=== PATIENT | male | born 1970 | race African-American/Black ===

== ENCOUNTER 2016-09-28 14:54 | Emergency (ER) | payer MEDICAID ==
[~2016-09-28] VITALS: Ht 182.9 cm; Wt 75.0 kg
[2016-09-28 15:08] VITALS: BP 146/84
[2016-09-28] MEDS ORDERED: KETOROLAC 30 MG/1 ML IM ONE (15:30)
[2016-09-28] MEDS ORDERED: HYDROcodone/APAP 5/325 TABLET PO PRN (15:30)
[2016-09-28] MEDS ORDERED: KETOROLAC 30 MG/1 ML ONE (15:33)
[2016-09-28] MEDS ORDERED: HYDROcodone/APAP 5/325 TABLET ONE (15:33)
== END 2016-09-28 16:32 | disposition home or self-care (01) ==
LOC: ED 16:20
DX: S86.911A Strain of unspecified muscle(s) and tendon(s) at lower leg level, right leg, initial encounter (principal); W10.9XXA Fall (on) (from) unspecified stairs and steps, initial encounter; Y93.89 Activity, other specified; Y92.89 Other specified places as the place of occurrence of the external cause; Y99.8 Other external cause status
CPT/HCPCS: 73590; 96372; 99284; J1885

== ENCOUNTER 2017-09-08 16:45 | Emergency (ER) | payer MEDICAID ==
[~2017-09-08] VITALS: Ht 182.9 cm; Wt 73.4 kg
[2017-09-08 16:48] VITALS: BP 144/92
[2017-09-08 17:38] LABS: BASOPHILS # (AUTO) 0.03 x10^3/uL (0-0.1); BASOPHILS % (AUTO) 1 % (0-1); EOSINOPHILS # (AUTO) 0.14 x10^3/uL (0-0.4); EOSINOPHILS % (AUTO) 3 % (1-7); LYMPHOCYTES # (AUTO) 1.84 x10^3/uL (1-3.4); LYMPHOCYTES % (AUTO) 41 % (22-44); MD NO; MEAN CORPUSCULAR HEMOGLOBIN 32.1 pg (27.5-34.5); MEAN CORPUSCULAR HGB CONC 33.3 g/dL (33.2-36.2); MEAN CORPUSCULAR VOLUME 96.3 fL (81-97); MEAN PLATELET VOLUME 8.4 fL (7.4-10.4); MONOCYTES # (AUTO) 0.32 x10^3/uL (0.2-0.8); MONOCYTES % (AUTO) 7 % (2-9); NEUTROPHILS # (AUTO) 2.17 x10^3/uL (1.8-6.8); NEUTROPHILS % (AUTO) 48 % (42-75); PLATELET COUNT 262 x10^3/uL (130-400); RED BLOOD COUNT 4.55 x10^6/uL (4.38-5.82); RED CELL DISTRIBUTION WIDTH 13.1 % (9.4-14.8)
[2017-09-08 17:47] LABS: ALANINE AMINOTRANSFERASE 71 U/L (12-78); ALBUMIN 3.5 g/dL (3.4-5.0); ANION GAP 10 mmol/L (5-15); CALCIUM 8.8 mg/dL (8.5-10.1); CHLORIDE 109 mmol/L (98-107); CREATININE 1.46 mg/dL (0.7-1.3)
[2017-09-08 17:49] LABS: ALKALINE PHOSPHATASE 102 U/L (45-117); TOTAL PROTEIN 6.5 g/dL (6.4-8.2)
[2017-09-08 18:04] LABS: MICROSCOPIC NOT IND
[2017-09-08 18:09] LABS: CULTURE INDICATED? NO
== END 2017-09-08 19:16 | disposition home or self-care (01) ==
LOC: ED 19:00
DX: R10.84 Generalized abdominal pain (principal); R11.0 Nausea; F17.200 Nicotine dependence, unspecified, uncomplicated; Z79.899 Other long term (current) drug therapy; Z90.89 Acquired absence of other organs
CPT/HCPCS: 36415; 80053; 80307; 81003; 83690; 85025; 99284

== ENCOUNTER 2017-09-23 22:53 | Emergency (ER) | payer MEDICAID ==
[~2017-09-23] VITALS: Ht 182.9 cm; Wt 77.5 kg
[2017-09-23 22:58] VITALS: BP 132/90
[2017-09-23 23:47] LABS: BASOPHILS # (AUTO) 0.01 x10^3/uL (0-0.1); BASOPHILS % (AUTO) 0 % (0-1); EOSINOPHILS % (AUTO) 4 % (1-7); LYMPHOCYTES % (AUTO) 45 % (22-44); MD NO; MEAN CORPUSCULAR HEMOGLOBIN 32.3 pg (27.5-34.5); MEAN CORPUSCULAR HGB CONC 33.8 g/dL (33.2-36.2); MEAN CORPUSCULAR VOLUME 95.4 fL (81-97); MEAN PLATELET VOLUME 8.6 fL (7.4-10.4); MONOCYTES # (AUTO) 0.43 x10^3/uL (0.2-0.8); MONOCYTES % (AUTO) 8 % (2-9); NEUTROPHILS # (AUTO) 2.48 x10^3/uL (1.8-6.8); NEUTROPHILS % (AUTO) 44 % (42-75); PLATELET COUNT 226 x10^3/uL (130-400); RED BLOOD COUNT 4.52 x10^6/uL (4.38-5.82); RED CELL DISTRIBUTION WIDTH 12.9 % (9.4-14.8)
[2017-09-23 23:58] LABS: ALBUMIN 3.3 g/dL (3.4-5.0); ANION GAP 9 mmol/L (5-15); CALCIUM 8.1 mg/dL (8.5-10.1); CHLORIDE 109 mmol/L (98-107); CREATININE 1.38 mg/dL (0.7-1.3)
== END 2017-09-24 01:33 | disposition home or self-care (01) ==
LOC: ED 23:10
DX: J20.9 Acute bronchitis, unspecified (principal); J45.909 Unspecified asthma, uncomplicated; F17.210 Nicotine dependence, cigarettes, uncomplicated
CPT/HCPCS: 36415; 71046; 80048; 82040; 85025; 99285; 99406

== ENCOUNTER 2017-12-29 23:00 | Emergency (ER) | payer MEDICAID ==
[~2017-12-29] VITALS: Ht 180.3 cm; Wt 77.6 kg
[2017-12-29] MEDS ORDERED: IBUPROFEN 800 MG TABLET PO STA (23:30)
[2017-12-29] MEDS ORDERED: ALBUTEROL/IPRATROPIUM 2.5MG/0.5MG, 3 ML NPPB ONE (23:30)
[2017-12-29] MEDS ORDERED: IBUPROFEN 200 MG TABLET ONE (23:34)
[2017-12-30 00:07] VITALS: BP 113/74
== END 2017-12-30 00:29 | disposition home or self-care (01) ==
LOC: ED 23:46
DX: J20.8 Acute bronchitis due to other specified organisms (principal); B97.89 Other viral agents as the cause of diseases classified elsewhere; F17.210 Nicotine dependence, cigarettes, uncomplicated; J45.909 Unspecified asthma, uncomplicated; Z90.89 Acquired absence of other organs
CPT/HCPCS: 71046; 94640; 99284; 99406; J7512; J7620

== ENCOUNTER 2018-03-22 08:24 | Emergency (ER) | payer MEDICAID ==
[~2018-03-22] VITALS: Ht 190.5 cm; Wt 79.3 kg
[2018-03-22] MEDS ORDERED: IBUPROFEN 600 MG TABLET ONE (08:36)
[2018-03-22] MEDS ORDERED: HYDROcodone/APAP 5/325 TABLET ONE (08:36)
--- NOTE | 2018-03-22 08:40 | NUR ---
Pt medicated per APR, to xray via [facility].
[2018-03-22] MEDS ORDERED: HYDROcodone/APAP 5/325 TABLET PO ONE (09:00)
[2018-03-22] MEDS ORDERED: IBUPROFEN 600 MG TABLET PO ONE (09:00)
--- NOTE | 2018-03-22 09:08 | NUR ---
Dr. Gonzalez at bedside to discuss POC with pt.
[2018-03-22 09:20] VITALS: BP 120/71
--- NOTE | 2018-03-22 09:20 | NUR ---
Pt states pain resolved after medications.
== END 2018-03-22 09:22 | disposition home or self-care (01) ==
LOC: ED 09:21
DX: G89.11 Acute pain due to trauma (principal); M25.562 Pain in left knee; F17.200 Nicotine dependence, unspecified, uncomplicated; J45.909 Unspecified asthma, uncomplicated; X58.XXXA Exposure to other specified factors, initial encounter; Y93.89 Activity, other specified; Y92.89 Other specified places as the place of occurrence of the external cause; Y99.8 Other external cause status
CPT/HCPCS: 99283

== ENCOUNTER 2018-08-20 17:46 | Emergency (ER) | payer MEDICAID ==
[~2018-08-20] VITALS: Ht 182.9 cm; Wt 76.8 kg
[2018-08-20 17:48] VITALS: BP 133/78
== END 2018-08-20 19:26 | disposition home or self-care (01) ==
LOC: ED 19:20
DX: G43.C0 Periodic headache syndromes in child or adult, not intractable (principal); J01.00 Acute maxillary sinusitis, unspecified
CPT/HCPCS: 99282